=== PATIENT | female | born 2000 | race Two or more races ===

== ENCOUNTER 2021-12-17 13:23 | Emergency (ER) | payer OTHER ==
[2021-12-17 13:56] VITALS: BP 101/68; PULSE 81; RESP 18; TEMP 98.3; BMI 24.7
[2021-12-17] MEDS ORDERED: ACETAMINOPHEN 500 MG TABLET (FP) PO ONE (14:29)
[2021-12-17] MEDS ORDERED: ACETAMINOPHEN 500 MG TABLET (FP) ONE (14:56)
[2021-12-17 15:41] LABS: HCG,QUALITATIVE URINE Negative
[2021-12-17 15:43] LABS: BASO % 0.5 % (0-2.0); EOS % 0.9 % (0-4.5); HEMATOCRIT 36.8 % (32.4-45.2); HEMOGLOBIN 12.7 GM/dL (10.7-15.3); LYMPH % 40.8 % (8-40); MCH 31.7 pg (25.7-33.7); MCHC 34.5 g/dl (32.0-36.0); MEAN PLT VOLUME 7.7 fl (7.5-11.1); NEUT % 48.8 % (42.8-82.8); PLATELET COUNT 277 10^3/uL (134-434); RDW 12.2 % (11.6-15.6); WHITE BLOOD COUNT 4.3 K/mm3 (4.0-10.0)
[2021-12-17 15:47] LABS: EPI CELLS 7 /uL (0-25.1); HYALINE CASTS 0 /uL (0-3.1); PH,URINE 6.5 (5.0-8.0); URINE APPEARANCE CLEAR; URINE BACTERIA 269 /uL (0-1359); URINE BILIRUBIN NEGATIVE (NEGATIVE); URINE COLOR YELLOW; URINE GLUCOSE (UA) NEGATIVE (NEGATIVE); URINE KETONE NEGATIVE (NEGATIVE); URINE LEUK ESTERASE NEGATIVE (NEGATIVE); URINE NITRITE NEGATIVE (NEGATIVE); URINE PROTEIN NEGATIVE (NEGATIVE); URINE RBC 3 /uL (0-23.9); URINE WBC 6 /uL (0-25.8)
[2021-12-17 16:07] LABS: BLOOD UREA NITROGEN 6.6 mg/dL (7-18); CALCIUM 9.7 mg/dL (8.5-10.1)
[2021-12-17 16:11] LABS: CREATININE 0.6 mg/dL (0.55-1.3)
== END 2021-12-17 16:40 | disposition home or self-care (01) ==
LOC: JER 13:23
DX: O26.851 Spotting complicating pregnancy, first trimester (principal); Z3A.01 Less than 8 weeks gestation of pregnancy
CPT/HCPCS: 36415; 80048; 81003; 84439; 84443; 84481; 84702; 84703; 85025; 86850; 86900; 86901; 87086; 99283-25

== ENCOUNTER 2022-08-13 16:41 | Emergency (ER) | payer OTHER ==
[2022-08-13 17:17] VITALS: BP 108/57; PULSE 88; RESP 16; TEMP 98.9; BMI 19.8
[2022-08-13] MEDS ORDERED: SODIUM CHLORIDE 1,000 ML IV STA (17:45)
[2022-08-13] MEDS ORDERED: ONDANSETRON 4 MG/2 ML VIAL IVPUSH ONE (17:46)
[2022-08-13] MEDS ORDERED: ONDANSETRON 4 MG/2 ML VIAL ONE (18:01)
[2022-08-13] MEDS ORDERED: ACETAMINOPHEN 1000 MG/100 ML BAG IVPB ONE (18:12)
[2022-08-13] MEDS ORDERED: ACETAMINOPHEN INJECTION 100 ML IVPB ONE (18:23)
[2022-08-13 18:48] LABS: HCG,QUALITATIVE URINE Positive
[2022-08-13 18:49] LABS: PH,URINE 6.5 (5.0-8.0); URINE APPEARANCE CLEAR; URINE BILIRUBIN NEGATIVE (NEGATIVE); URINE COLOR YELLOW; URINE GLUCOSE (UA) NEGATIVE (NEGATIVE); URINE KETONE TRACE (NEGATIVE); URINE LEUK ESTERASE NEGATIVE (NEGATIVE); URINE NITRITE NEGATIVE (NEGATIVE); URINE PROTEIN NEGATIVE (NEGATIVE)
[2022-08-13 18:49] LABS: POTASSIUM 3.8 mmol/L (3.5-5.1)
[2022-08-13 18:50] LABS: BASO % 0.4 % (0-2.0); EOS % 0.7 % (0-4.5); HEMATOCRIT 32.7 % (32.4-45.2); HEMOGLOBIN 11.3 GM/dL (10.7-15.3); LYMPH % 41.1 % (8-40); MCH 31.6 pg (25.7-33.7); MCHC 34.4 g/dl (32.0-36.0); MEAN CELL VOLUME 91.7 fl (80-96); MEAN PLT VOLUME 7.6 fl (7.5-11.1); MONO % 12.6 % (3.8-10.2); NEUT % 45.2 % (42.8-82.8); PLATELET COUNT 230 10^3/uL (134-434); RBC 3.57 M/mm3 (3.60-5.2); RDW 12.7 % (11.6-15.6); WHITE BLOOD COUNT 5.7 K/mm3 (4.0-10.0)
[2022-08-13 18:51] LABS: CALCIUM 8.5 mg/dL (8.5-10.1)
[2022-08-13 18:52] LABS: ALBUMIN 3.5 g/dl (3.4-5.0); BLOOD UREA NITROGEN 6.4 mg/dL (7-18)
[2022-08-13 18:55] LABS: CREATININE 0.6 mg/dL (0.55-1.3)
[2022-08-13 18:56] LABS: BILIRUBIN,TOTAL 0.2 mg/dL (0.2-1); TOT PROT 6.7 g/dl (6.4-8.2)
== END 2022-08-13 20:42 | disposition home or self-care (01) ==
LOC: JER 16:41
PROC: 3E033NZ Introduction of Analgesics, Hypnotics, Sedatives into Peripheral Vein, Percutaneous Approach (ICD-10-PCS; principal; 2022-08-13)
PROC: 3E033GC Introduction of Other Therapeutic Substance into Peripheral Vein, Percutaneous Approach (ICD-10-PCS; 2022-08-13)
PROC: 3E0337Z Introduction of Electrolytic and Water Balance Substance into Peripheral Vein, Percutaneous Approach (ICD-10-PCS; 2022-08-13)
DX: O26.891 Other specified pregnancy related conditions, first trimester (principal); R10.9 Unspecified abdominal pain; R11.0 Nausea; Z3A.01 Less than 8 weeks gestation of pregnancy; Z20.822 Contact with and (suspected) exposure to COVID-19
CPT/HCPCS: 0241U-QW; 36415; 76830-TC; 80053; 81003; 83690; 84702; 84703; 85025; 87086; 87491; 87591; 99284-25

== ENCOUNTER 2022-09-28 16:28 | Emergency (ER) | payer OTHER ==
[2022-09-28 16:47] VITALS: BP 101/55; PULSE 74; RESP 18; TEMP 98.1; BMI 27.4
[2022-09-28] MEDS ORDERED: LACTATED RINGERS SOLUTION 1000 ML INFUS.BAG IV ONE (18:29)
[2022-09-28 18:40] LABS: URINE APPEARANCE CLEAR; URINE BILIRUBIN NEGATIVE (NEGATIVE); URINE COLOR YELLOW; URINE GLUCOSE (UA) NEGATIVE (NEGATIVE); URINE KETONE NEGATIVE (NEGATIVE); URINE LEUK ESTERASE NEGATIVE (NEGATIVE); URINE NITRITE NEGATIVE (NEGATIVE); URINE PROTEIN NEGATIVE (NEGATIVE); URINE UROBILINOGEN 0.2 mg/dL (0.2-1.0)
[2022-09-28 18:44] LABS: HCG,QUALITATIVE URINE Positive
[2022-09-28 18:57] LABS: METHADONE, UR NEGATIVE (NEGATIVE); PHENCYCLIDINE,URINE NEGATIVE (NEGATIVE)
[2022-09-28 18:58] LABS: COCAINE, UR NEGATIVE (NEGATIVE); OPIATES, URI NEGATIVE (NEGATIVE); URINE BARBITURATES NEGATIVE (NEGATIVE); URINE BENZODIAZEPINES NEGATIVE (NEGATIVE)
[2022-09-28 19:25] LABS: URINE AMPHETAMINES NEGATIVE (NEGATIVE)
[2022-09-28 19:34] LABS: VENOUS BASE EXCESS -5.4 mmol/L (-2-2); VENOUS O2 SATURATION 65.2 % (70-80); VENOUS PCO2 37.3 mmHg (38-52); VENOUS PH 7.342 (7.310-7.410)
[2022-09-28 19:38] LABS: BASO % 0.5 % (0-2.0); EOS % 0.5 % (0-4.5); HEMATOCRIT 32.2 % (32.4-45.2); HEMOGLOBIN 10.9 GM/dL (10.7-15.3); LYMPH % 39.2 % (8-40); MCH 30.8 pg (25.7-33.7); MCHC 33.7 g/dl (32.0-36.0); MEAN CELL VOLUME 91.3 fl (80-96); MEAN PLT VOLUME 8.3 fl (7.5-11.1); MONO % 8.9 % (3.8-10.2); NEUT % 50.9 % (42.8-82.8); PLATELET COUNT 224 10^3/uL (134-434); RBC 3.53 M/mm3 (3.60-5.2); WHITE BLOOD COUNT 4.7 K/mm3 (4.0-10.0)
[2022-09-28 19:48] LABS: INR 1.03 (0.83-1.09)
[2022-09-28 19:50] LABS: ACTIVATED PTT 30.2 SECONDS (25.2-36.5)
[2022-09-28 20:15] LABS: CHLORIDE 106 mmol/L (98-107); POTASSIUM 3.8 mmol/L (3.5-5.1); SODIUM 137 mmol/L (136-145)
[2022-09-28 20:17] LABS: BLOOD UREA NITROGEN 3.9 mg/dL (7-18); CALCIUM 9.5 mg/dL (8.5-10.1)
[2022-09-28 20:18] LABS: ALBUMIN 3.5 g/dl (3.4-5.0); ANION GAP 10 MMOL/L (8-16); CO2 22 mmol/L (21-32); GLUCOSE,RANDOM 71 mg/dL (74-106)
[2022-09-28 20:21] LABS: CREATININE 0.4 mg/dL (0.55-1.3); SGOT/AST 18 U/L (15-37); SGPT/ALT 23 U/L (13-61)
[2022-09-28 20:22] LABS: BILIRUBIN,TOTAL 0.2 mg/dL (0.2-1); TOT PROT 6.8 g/dl (6.4-8.2)
[2022-09-28 20:23] LABS: ALK PHOS 53 U/L (45-117)
== END 2022-09-28 21:54 | disposition home or self-care (01) ==
LOC: JER 16:28
DX: O26.891 Other specified pregnancy related conditions, first trimester (principal); R10.2 Pelvic and perineal pain; H93.11 Tinnitus, right ear; R30.0 Dysuria; Z3A.11 11 weeks gestation of pregnancy
CPT/HCPCS: 36415; 76817-TC; 80053; 80307; 81003; 82803; 84702; 84703; 85025; 85610; 85730; 86850; 86900; 86901; 87086; 87186; 93005; 93010; 99285-25

== ENCOUNTER 2023-06-04 11:51 | Emergency (ER) | payer OTHER ==
[2023-06-04 12:22] VITALS: BP 126/55; PULSE 95; RESP 18; TEMP 97.5; BMI 29.2
[2023-06-04 13:53] LABS: URINE APPEARANCE CLEAR; URINE BILIRUBIN NEGATIVE (NEGATIVE); URINE COLOR YELLOW; URINE GLUCOSE (UA) NEGATIVE (NEGATIVE); URINE KETONE TRACE (NEGATIVE); URINE LEUK ESTERASE NEGATIVE (NEGATIVE); URINE NITRITE NEGATIVE (NEGATIVE); URINE PROTEIN NEGATIVE (NEGATIVE)
[2023-06-04 13:56] LABS: HCG,QUALITATIVE URINE Negative
[2023-06-04 14:28] LABS: BASO % 0.6 % (0-2.0); EOS % 0.5 % (0-4.5); HEMATOCRIT 36.9 % (32.4-45.2); HEMOGLOBIN 12.3 GM/dL (10.7-15.3); LYMPH % 52.5 % (8-40); MCH 31.3 pg (25.7-33.7); MCHC 33.4 g/dl (32.0-36.0); MEAN CELL VOLUME 93.5 fl (80-96); MEAN PLT VOLUME 7.8 fl (7.5-11.1); MONO % 11.9 % (3.8-10.2); NEUT % 34.5 % (42.8-82.8); PLATELET COUNT 237 10^3/uL (134-434); RBC 3.94 M/mm3 (3.60-5.2); RDW 12.7 % (11.6-15.6); WHITE BLOOD COUNT 4.2 K/mm3 (4.0-10.0)
[2023-06-04 14:41] LABS: POTASSIUM 4.3 mmol/L (3.5-5.1)
[2023-06-04 14:46] LABS: ALBUMIN 3.7 g/dl (3.4-5.0); BLOOD UREA NITROGEN 11.9 mg/dL (7-18); CALCIUM 9.1 mg/dL (8.5-10.1)
[2023-06-04 14:49] LABS: CREATININE 0.8 mg/dL (0.55-1.3)
[2023-06-04 14:51] LABS: BILIRUBIN,TOTAL 0.2 mg/dL (0.2-1); TOT PROT 7.2 g/dl (6.4-8.2)
[2023-06-04 16:05] LABS: SYPHILIS W/ RPR CONF NON-REACTIVE (NONREACTIVE)
[2023-06-04 16:34] LABS: HIV INTERPRETATION NEGATIVE (NEGATIVE)
== END 2023-06-04 18:11 | disposition home or self-care (01) ==
LOC: JER 11:51
DX: R10.30 Lower abdominal pain, unspecified (principal); R10.2 Pelvic and perineal pain; N89.8 Other specified noninflammatory disorders of vagina; R11.0 Nausea; N83.291 Other ovarian cyst, right side
CPT/HCPCS: 36415; 76830-TC; 80053; 81003; 84703; 85025; 86780; 87086; 87389; 87491; 87591; 99284-25

== ENCOUNTER 2024-01-16 10:56 | Emergency (ER) | payer OTHER ==
[2024-01-16 11:12] VITALS: BP 109/67; PULSE 80; RESP 18; TEMP 98.8; BMI 30.2
[2024-01-16] MEDS ORDERED: ACETAMINOPHEN 500 MG TABLET (FP) ONE (12:40)
[2024-01-16] MEDS: ACETAMINOPHEN 500 MG TABLET (FP) PO ONE (12:44)
== END 2024-01-16 14:30 | disposition home or self-care (01) ==
LOC: JER 10:56
DX: H11.31 Conjunctival hemorrhage, right eye (principal); R51.9 Headache, unspecified; V18.0XXA Pedal cycle driver injured in noncollision transport accident in nontraffic accident, initial encounter
CPT/HCPCS: 70450-TC; 99284-25

== ENCOUNTER 2024-01-29 01:44 | Emergency (ER) | payer OTHER ==
[2024-01-29 01:55] VITALS: BP 116/70; PULSE 101; RESP 18; TEMP 99.3; BMI 30.2
[2024-01-29] MEDS ORDERED: FAMOTIDINE 20 MG TABLET ONE (02:51)
[2024-01-29] MEDS ORDERED: ONDANSETRON *ODT* 4 MG TABLET ONE (02:51)
[2024-01-29] MEDS ORDERED: MAG HYDROX/AL HYDROX/SIMETH 30 ML UNIT-DOSE CUP ONE (02:52)
[2024-01-29] MEDS: FAMOTIDINE 20 MG TABLET PO ONE (02:57)
[2024-01-29] MEDS: MAG HYDROX/AL HYDROX/SIMETH 30 ML UNIT-DOSE CUP PO ONE (02:57)
[2024-01-29] MEDS: ONDANSETRON *ODT* 4 MG TABLET SL ONE (02:57)
[2024-01-29 03:13] LABS: HCG,QUALITATIVE URINE Negative
[2024-01-29 03:15] LABS: EPI CELLS 3 /uL (0-25.1); HYALINE CASTS 0 /uL (0-3.1); URINE APPEARANCE CLEAR; URINE BACTERIA 19 /uL (0-1359); URINE BILIRUBIN NEGATIVE (NEGATIVE); URINE COLOR YELLOW; URINE GLUCOSE (UA) NEGATIVE (NEGATIVE); URINE KETONE NEGATIVE (NEGATIVE); URINE LEUK ESTERASE NEGATIVE (NEGATIVE); URINE NITRITE NEGATIVE (NEGATIVE); URINE PROTEIN NEGATIVE (NEGATIVE); URINE RBC 8 /uL (0-23.9); URINE UROBILINOGEN 0.2 mg/dL (0.2-1.0); URINE WBC 8 /uL (0-25.8)
[2024-01-29 04:35] LABS: HIV INTERPRETATION NEGATIVE (NEGATIVE)
== END 2024-01-29 03:53 | disposition home or self-care (01) ==
LOC: JER 01:44
DX: R11.2 Nausea with vomiting, unspecified (principal)
CPT/HCPCS: 36415; 81003; 84703; 86803; 87086; 87389; 99283-25; Q0162